=== PATIENT | female | born 1995 | race American Indian/Alaskan Native ===

== ENCOUNTER 2019-09-20 11:17 | Emergency (ER) | payer SELFPAY ==
[2019-09-20] MEDS ORDERED: KETOROLAC 60 MG/2 ML INJ IM ONE (11:50)
[2019-09-20 12:04] VITALS: BP 92/65
[2019-09-20] MEDS ORDERED: SODIUM CHLORIDE 0.9% 1000 ML 1,000 ML IV ONE (12:21)
--- NOTE | 2019-09-20 12:28 | XRay Report ---
CHEST 2 VIEWS INDICATION / CLINICAL INFORMATION: mid cp. COMPARISON: None available. FINDINGS: SUPPORT DEVICES: None. HEART / MEDIASTINUM: No significant abnormality. LUNGS / PLEURA: No significant pulmonary or pleural abnormality. .No pneumothorax. ADDITIONAL FINDINGS: No significant additional findings. IMPRESSION: 1. No acute findings. Signer Name: Sherif Franco MD Signed: 09/20/2019 12:24 PM Workstation Name: [id number]
--- NOTE | 2019-09-20 12:32 | Emergency Department Report ---
ED Chest Pain HPI - General Chief Complaint: Chest Pain Stated Complaint: CHEST PAIN Time Seen by Provider: 09/20/19 11:40 Source: EMS Mode of arrival: Stretcher Limitations: No Limitations - History of Present Illness Initial Comments: 24-year-old female in no sniffed and past medical history presents to the hospital complaining of substernal chest pain since 9 AM. Patient's chest pain is intermittent, and sharp. Pain worsened movement and deep inspiration. Pain rated 10/10 in intensity at onset. She denies cough, shortness of breath, nausea, vomiting, diaphoresis, calf tenderness, recent travel, history of PE/DVT, or smoking, drug use, or or control use. Patient's mother provided aspirin prior to arriving pain currently 78/10. Severity scale (0 -10): 7 - Related Data Previous Rx's Medication Instructions Recorded Last Taken Type Ibuprofen [Motrin] 800 mg PO Q8HR PRN #20 tablet 09/20/19 Unknown Rx Allergies Allergy/AdvReac Type Severity Reaction Status Date / Time No Known Allergies Allergy Verified 09/20/19 11:42 Heart Score - HEART Score History: Slightly suspicious EKG: Normal Age: < 45 Risk factors: No known risk factors Troponin: < normal limit (trop not obtained, low risk) HEART Score: 0 ED Review of Systems ROS: Stated complaint: CHEST PAIN Other details as noted in HPI Comment: All other systems reviewed and negative ED Past Medical Hx - Past Medical History Previous Medical History?: No - Surgical History Past Surgical History?: No - Social History Smoking Status: Never Smoker - Medications Home Medications: Home Medications Medication Instructions Recorded Confirmed Last Taken Type Ibuprofen [Motrin] 800 mg PO Q8HR PRN #20 tablet 09/20/19 Unknown Rx ED Physical Exam - General Limitations: No Limitations - Other Other exam information: General: No acute distress Head: Atraumatic Eyes: normal appearance ENT: Moist mucous membranes Neck: Normal appearance, no midline tenderness Chest: Clear to auscultation bilaterally, midsternal chest wall tenderness CV: Regular rate and rhythm Abdomen: Soft, normal bowel sounds, nontender, nondistended, no rebound or guarding Back: Normal inspection Extremity: Normal inspection infection, full range of motion, no calf tenderness or leg edema Neuro: Alert O x 3, no facial asymmetry, speech clear, no gross motor sensory deficit Psych: Appropriate behavior Skin: No rash ED Course Vital Signs 09/20/19 12:02 Temperature 98.1 F Pulse Rate 66 Respiratory 16 Rate Blood Pressure 92/65 [Left] O2 Sat by Pulse 99 Oximetry PAOLO score - Paolo Score Age > 65: (0) No Aspirin use within the Past 7 Days: (0) No 3 or more CAD Risk Factors: (0) No 2 or more Angina events in past 24 hrs: (0) No Known CAD with more than 50% Stenosis: (0) No Elevated Cardiac Markers: (0) No ST Deviation Greater than 0.5mm: (0) No PAOLO Score: 0 ED Medical Decision Making - EKG Data -: EKG Interpreted by Id EKG shows normal: sinus rhythm, ST-T waves (no stemi) Rate: normal - Radiology Data Radiology results: report reviewed (cxf naf) - Medical Decision Making pt's Perc PE score 0 therefore ddimer not obtained pain localized to sternal area mild tenderness on palp ekg, cxr, vitals normal toradol in ed pt to be d/arleth with meds and pmd f/u - Differential Diagnosis ME, PE, costochondritis, MSK pain Critical Care Time: No Critical care attestation.: If time is entered above; I have spent that time in minutes in the direct care of this critically ill patient, excluding procedure time. ED Disposition Clinical Impression: Costochondritis, acute Disposition: DC-01 TO HOME OR SELFCARE Is pt being admited?: No Does the pt Need Aspirin: No Condition: Stable Instructions: Costochondritis (ED) Additional Instructions: Take the medication as prescribed. Follow-up with your doctor or doctor/clinic provided. Return if symptoms worsen as indicated by your discharge instructions. Prescriptions: Ibuprofen [Motrin] 800 mg PO Q8HR PRN #20 tablet PRN Reason: Pain , Severe (7-10) Referrals: MARICEL BUCIO MD [Staff Physician] - 3-5 Days [facility] [Provider Group] - 3-5 Days Forms: Work/School Release Form(ED) Time of Disposition: 12:37
== END 2019-09-20 13:16 | disposition home or self-care (01) ==
LOC: ED 11:17
DX: M94.0 Chondrocostal junction syndrome [Tietze] (principal)
CPT/HCPCS: 71046; 93005; 93010; 96372; 99283; J1885